=== PATIENT | female | born 1950 | race Caucasian/White ===

== ENCOUNTER → 2017-03-26 | Outpatient (CLI) | payer MEDICARE, SELFPAY | PROVIDERS: Family Provider Family Medicine; Visit Provider Orthopaedic Surgery | DX: M25.552 Pain in left hip (principal) | CPT/HCPCS: 73502 ==

== ENCOUNTER 2017-06-16 15:00 | Outpatient (RCR) | payer MEDICARE, SELFPAY ==
--- NOTE | 2017-04-30 09:28 | HMH.PTOPEV ---
Rehab Outpatient Evaluation Rehab OP Evaluation Start: 04/30/17 09:13 Freq: Status: Active Protocol: Document 04/30/17 09:14 YANNAREID (Rec: 04/30/17 09:27 LINDSEY [id number]) Electronically Signed By David Medel PT 04/30/17 09:14 Outpatient Therapy Subjective History Subjective History THis is the initial Physical Therapy evalaution for Junie Hines. PT is a 66 y/o female referred to PT for c/o R heel pain. Pt reports pain began insidiously in February but has increased over the last few months. Pt reports last thursday she went to [employer] [facility] [employer]. Chief Complaint Pain Stiff Symptom Type Sharp Symptoms Relieved By Rest/Positioning Symptoms Aggravated By Standing Physical Activity Walking Prior Functional Limitations None Current Functional Limitations Standing Recreation Activity Walking Symptom Description Intermittent Level of pain today (0-10) 2 Pain scale - at its best (0-10) 5 Pain scale - at its worst (0-10) 0 Ankle/Foot Eval Gait Observation General Gait Pattern Observation Antalgic Gait Assistive Device Ambulation Assistive Device None Palpation Tenderness right Ankle/Foot Palpation Findings Tenderness Ankle/Foot Palpation Overall Comment tender at R heel ROM bilateral Ankle/Foot ROM Reason Not Measured Within Functional Limits Great Toe ROM Reason Not Measured Within Functional Limits MMT Ankle Dorsiflexion Strength Grade 5 Normal Ankle Plantarflexion Strength Grade 5 Normal Foot Eversion Strength Grade 5 Normal Foot Inversion Strength Grade 5 Normal Outpatient Therapy Assessment Impairments Problems/Impairmments Palpation Tenderness Impaired Gait Pattern Impaired Walking Impaired Standing Impaired Recreational Activities Impaired Work Activities Subjective C/O Pain Impaired Self Care/Self Management Prognosis Rehab Potential Fair Clinical Impression Consistent with Diagnosis Yes Short Term Goals Number of Weeks 2 Decreased Palpation Tende
== END 2017-06-16 15:01 | disposition home or self-care (01) ==
LOC: PT 15:00
PROVIDERS: Family Provider Family Medicine; PCP Family Medicine; Visit Provider Family Medicine
DX: M72.2 Plantar fascial fibromatosis (principal)
CPT/HCPCS: 97035; 97110; 97140

== ENCOUNTER → 2017-07-21 07:51 | Outpatient (CLI) | payer MEDICARE, SELFPAY ==
--- NOTE | 2017-07-21 08:00 | MR_ITS ---
MR lumbar spine wo con, MR 3-d myelogram/MRCP HISTORY: Left sided LBP. Lt leg pain, numbness, and tingling along with weakness. Symptoms Xyrs but started getting worse [id number]. ITS.REASON: LEFT LUMBAR RADICULOPATHY ORDERING PHYSICIAN: Jens Wall MD PATIENT AGE: 66 years TECHNIQUE: Standard multiplanar multiecho sequences are performed without contrast. 3-D MIP and myelographic images are also rendered and reviewed FINDINGS: There is normal alignment. The spinal cord ends at the L1-L2 level. Mild degenerative disc disease T11-T12 with minimal bulging disc best demonstrated on the sagittal images. T12-L1, L1-L2, and L2-L3 have an unremarkable appearance. L3-L4: Very minimal bulging disc along with mild facet and ligamentum flavum hypertrophy. L4-5: Minimal anterolisthesis of L4 of 2 mm with mild bulging disc along with facet and ligamentum flavum hypertrophy causing moderate bilateral lateral recess narrowing. This is greater on the right with resultant transverse narrowing of the canal along with mild bilateral foraminal narrowing. L5-S1: Mild concentric bulging disc with a small broad-based left paracentral disc protrusion abutting the anteromedial aspect of the left S1 nerve root without nerve root displacement or compression. Mild facet hypertrophic changes are present with mild to moderate bilateral foraminal narrowing. Right parapelvic renal cyst versus extrarenal pelvis. IMPRESSION: 1. Degenerative disc disease with mild bulging disc at T11-T12 and L3-L4. 2. Minimal anterolisthesis of L4 on L5 of 2 mm with mild bulging disc along with facet and ligamentum flavum hypertrophy causing moderate bilateral lateral recess narrowing. This is greater on the right with resultant transverse narrowing of the canal along with mild bilateral foraminal narrowing. 3. Mild concentric bulging disc L5-S1 with a small broad-based left paracentral disc protrusion abutting the anteromedial aspect of the left S1 nerve root without nerve root displacement or compression. Mild facet hypertrophic changes are present with mild to moderate bilateral foraminal narrowing
== END ==
PROVIDERS: Family Provider Family Medicine; PCP Family Medicine; Visit Provider Family Medicine
DX: M54.16 Radiculopathy, lumbar region (principal)
CPT/HCPCS: 72148; 76376

== ENCOUNTER → 2017-10-28 11:48 | Outpatient (CLI) | payer MEDICARE, SELFPAY ==
[2017-10-28 11:57] LABS: Microscopic, Urine URINE MICROSCOPIC (MICROSCOPIC)
[2017-10-28 12:04] LABS: Appearance,Urine CLEAR (Clear); Bilirubin,Urine Negative (Negative); Blood, Urine Negative (Negative); Color,Urine YELLOW (Yellow); Glucose,Urine (UA) Negative (Negative); Ketones,Urine Negative (Negative); Leukocyte Esterase,Urine Negative (Negative); Nitrate,Urine Negative (Negative); PH,Urine 6.5 (5.0-8.5); Protein,Urine Negative (Negative); Specific Gravity, Urine <= 1.005 (1.005-1.030); Urobilinogen,Urine 0.2 EU/dl (0.2)
[2017-10-28 12:09] LABS: Basophils % 0.3 % (0.1-2.0); Eosinophils # 0.1 K/mm3 (0.0-0.4); Eosinophils % 1.1 % (0.1-12.0); Hematocrit 41.8 % (37.0-47.0); Hemoglobin 13.5 g/dL (12.2-16.2); Lymphocytes # 1.5 K/mm3 (0.7-4.5); Mean Corpuscular HGB Conc 32.3 g/dL (31.8-35.4); Mean Corpuscular Volume 92.8 fl (81-99); Mean Platelet Volume 7.1 fl (7.4-10.4); Monocytes # 0.4 K/mm3 (0.1-1.0); Monocytes % 6.6 % (1.7-9.3); Neutrophils # 3.7 K/mm3 (1.8-7.8); Platelet Count 390 K/mm3 (142-424); Red Cell Distribution Width 16.1 % (11.5-17.5); White Blood Count 5.6 K/mm3 (4.8-10.8)
--- NOTE | 2017-10-28 12:16 | XR_ITS ---
XR chest 2V HISTORY: ITS.REASON: ENVIROMENTAL ALLERGIES ORDERING PHYSICIAN: Jens Wall MD PATIENT AGE: 66 years COMPARISON: PA and lateral chest 05/12/2011 FINDINGS: The cardiomediastinal silhouette and pulmonary vascularity are within normal limits. The lungs are clear without infiltrates, suspicious nodules, or pleural effusions. No acute bony abnormalities. IMPRESSION: Negative chest, no acute finding
[2017-10-28 12:17] LABS: Activated Partial Thrombo Time 29.4 seconds (23.6-34.0); INR 0.97 (0.9-1.1)
[2017-10-28 12:19] LABS: Bacteria,Urine Trace /lpf
[2017-10-28 12:31] LABS: Hemoglobin A1C 5.7 % (0.0-7.0)
[2017-10-28 12:39] LABS: Anion Gap 12.6 mEq/L (5-15); Blood Urea Nitrogen 14 mg/dL (7-18); Calcium 9.6 mg/dL (8.5-10.1); Carbon Dioxide 28 mmol/L (21.0-32.0); Chloride 100 mmol/L (98-107); Creatinine,Serum 0.66 mg/dL (0.55-1.02); Estimated Glomerular Filt Rate 89 ml/min (>60); GFR (African American) 108 ML/MIN (>60); Glucose 85 mg/dL (74-106); Potassium 4.6 mmoL/L (3.5-5.1); Sodium 136 mmol/L (136-145)
== END ==
PROVIDERS: Visit Provider Family Medicine
DX: Z01.818 Encounter for other preprocedural examination (principal); Z79.899 Other long term (current) drug therapy; M25.552 Pain in left hip
CPT/HCPCS: 36415; 71046; 80048; 81001; 83036; 85025; 85610; 85730; 93005

== ENCOUNTER 2018-01-15 08:00 | Outpatient (RCR) | payer MEDICARE, SELFPAY | END 2018-01-15 08:01 | disposition home or self-care (01) | LOC: PT 08:00 | PROVIDERS: Visit Provider Physician Assistant | DX: M25.552 Pain in left hip (principal) | CPT/HCPCS: 97010; 97012; 97014; 97035; 97110; 97140; 97163; 97760; G0283 ==

== ENCOUNTER → 2018-05-04 08:00 | Outpatient (RCR) | payer MEDICARE, SELFPAY | END | disposition home or self-care (01) | LOC: PT 03-22 07:59 | PROVIDERS: Visit Provider Orthopaedic Surgery | DX: Z09 Encounter for follow-up examination after completed treatment for conditions other than malignant neoplasm (principal); Z96.641 Presence of right artificial hip joint | CPT/HCPCS: 97110; 97163 ==

== ENCOUNTER → 2018-07-01 08:11 | Outpatient (CLI) | payer MEDICARE, SELFPAY ==
[2018-07-01 09:09] LABS: Hemoglobin A1C 6.1 % (0.0-7.0)
[2018-07-01 09:20] LABS: Alanine Aminotransferase 30 U/L (12-78); Albumin Level 3.9 gm/dL (3.4-5.0); Albumin/Globulin Ratio 1.1 (1.1-1.8); Alkaline Phosphatase 99 U/L (46-116); Anion Gap 13.1 mEq/L (5-15); Aspartate Amino Transferase 27 U/L (15-37); Bilirubin,Total 0.3 mg/dL (0.2-1.0); Blood Urea Nitrogen 18 mg/dL (7-18); Calcium 9.9 mg/dL (8.5-10.1); Carbon Dioxide 28 mmol/L (21.0-32.0); Chloride 103 mmol/L (98-107); Chol/HDL Ratio 2.1 (1-3.5); Cholesterol 221 mg/dL (140-200); Creatinine,Serum 0.68 mg/dL (0.55-1.02); Estimated Glomerular Filt Rate 86 ml/min (>60); GFR (African American) 104 ML/MIN (>60); Globulin 3.4 gm/dl (1.3-3.2); Glucose 88 mg/dL (74-106); HDL Cholesterol 106 mg/dL (29-89); LDL Cholesterol 107 mg/dL (0-130); Potassium 4.1 mmoL/L (3.5-5.1); Sodium 140 mmol/L (136-145); Total Protein,Serum 7.3 gm/dL (6.4-8.2); Triglycerides 42 mg/dL (30-200); VLDL Cholesterol 8 mg/dL (0-40)
== END ==
PROVIDERS: Visit Provider Family Medicine
DX: Z00.00 Encounter for general adult medical examination without abnormal findings (principal); Z79.899 Other long term (current) drug therapy
CPT/HCPCS: 36415; 80053; 80061; 83036

== ENCOUNTER → 2018-10-26 09:44 | Outpatient (POV) | payer MEDICARE, SELFPAY | PROVIDERS: Visit Provider Dermatology | DX: Z00.00 Encounter for general adult medical examination without abnormal findings (principal) ==

== ENCOUNTER 2019-03-18 11:00 | Outpatient (RCR) | payer MEDICARE, SELFPAY | END 2019-03-18 11:05 | disposition home or self-care (01) | LOC: PT 11:00 | PROVIDERS: Visit Provider Physician Assistant | DX: M70.61 Trochanteric bursitis, right hip (principal) | CPT/HCPCS: 97010; 97014; 97033; 97035; 97110; 97163; 97164; G0283 ==

== ENCOUNTER → 2019-10-01 08:45 | Outpatient (CLI) | payer MEDICARE, SELFPAY ==
[2019-10-01 11:06] LABS: Chloride 104 mmol/L (98-107); Potassium 4.9 mmoL/L (3.5-5.1); Sodium 137 mmol/L (136-145)
[2019-10-01 11:08] LABS: Blood Urea Nitrogen 15 mg/dl (7-17); Estimated Glomerular Filt Rate 99 ml/min (>60); GFR (African American) 120 ML/MIN (>60)
[2019-10-01 11:09] LABS: Alanine Aminotransferase 30 U/L (12-78); Albumin Level 4.2 g/dl (3.5-5.0); Albumin/Globulin Ratio 1.5 (1.1-1.8); Alkaline Phosphatase 72 U/L (38-126); Anion Gap 9.9 mEq/L (5-15); Aspartate Amino Transferase 45 U/L (14-36); Bilirubin,Total 0.4 mg/dl (0.2-1.3); Calcium 9.5 mg/dl (8.4-10.2); Carbon Dioxide 28 mmol/L (22.0-30.0); Globulin 2.8 g/dL (1.3-3.2); Glucose 91 mg/dl (74-100); HDL Cholesterol 103 mg/dl (40-60)
[2019-10-01 11:11] LABS: Hemoglobin A1C 5.8 % (4.0-6.0)
[2019-10-01 11:22] LABS: Direct LDL Cholesterol 102.84 mg/dL (100-129)
[2019-10-01 14:51] LABS: Chol/HDL Ratio 2.3 (1-3.5); Cholesterol 234 mg/dl (140-200); Triglycerides 77 mg/dl (30-150); VLDL Cholesterol 15 mg/dL (0-40)
== END ==
PROVIDERS: Visit Provider Family Medicine
DX: Z00.00 Encounter for general adult medical examination without abnormal findings (principal); K22.70 Barrett's esophagus without dysplasia; G47.33 Obstructive sleep apnea (adult) (pediatric); R73.01 Impaired fasting glucose; E78.5 Hyperlipidemia, unspecified; Z13.220 Encounter for screening for lipoid disorders
CPT/HCPCS: 36415; 80053; 80061; 83036

== ENCOUNTER → 2020-06-09 09:26 | Outpatient (CLI) | payer MEDICARE, SELFPAY ==
[2020-06-09 10:45] LABS: Chloride 100 mmol/L (98-107); Potassium 4.3 mmoL/L (3.5-5.1); Sodium 139 mmol/L (136-145)
[2020-06-09 10:48] LABS: Anion Gap 11.3 mEq/L (5-15); Blood Urea Nitrogen 17 mg/dl (7-17); Carbon Dioxide 32 mmol/L (22.0-30.0); Estimated Glomerular Filt Rate 62 ml/min (>60); GFR (African American) 75 ML/MIN (>60)
[2020-06-09 10:49] LABS: Calcium 10.4 mg/dl (8.4-10.2); Glucose 101 mg/dl (74-100)
== END ==
PROVIDERS: Visit Provider Family Medicine
DX: I10 Essential (primary) hypertension (principal)
CPT/HCPCS: 36415; 80048

== ENCOUNTER → 2020-09-19 08:08 | Outpatient (CLI) | payer MEDICARE, SELFPAY ==
[2020-09-19 11:15] LABS: Alanine Aminotransferase 29 U/L (12-78); Albumin Level 4.6 g/dl (3.5-5.0); Albumin/Globulin Ratio 1.6 (1.1-1.8); Alkaline Phosphatase 87 U/L (38-126); Anion Gap 12.4 mEq/L (5-15); Aspartate Amino Transferase 33 U/L (14-36); Bilirubin,Total 0.6 mg/dl (0.2-1.3); Blood Urea Nitrogen 20 mg/dl (7-17); Calcium 10.2 mg/dl (8.4-10.2); Carbon Dioxide 25 mmol/L (22.0-30.0); Chloride 101 mmol/L (98-107); Chol/HDL Ratio 2.9 (1-3.5); Cholesterol 237 mg/dl (140-200); Estimated Glomerular Filt Rate 62 ml/min (>60); GFR (African American) 75 ML/MIN (>60); Globulin 2.8 g/dL (1.3-3.2); Glucose 90 mg/dl (74-100); HDL Cholesterol 82 mg/dl (40-60); Potassium 4.4 mmoL/L (3.5-5.1); Sodium 134 mmol/L (136-145); Total Protein,Serum 7.4 g/dl (6.3-8.2); Triglycerides 69 mg/dl (30-150); VLDL Cholesterol 14 mg/dL (0-40)
[2020-09-19 11:26] LABS: Direct LDL Cholesterol 118.84 mg/dL (100-129)
== END ==
PROVIDERS: Visit Provider Family Medicine
DX: Z00.00 Encounter for general adult medical examination without abnormal findings (principal); I10 Essential (primary) hypertension; K21.9 Gastro-esophageal reflux disease without esophagitis
CPT/HCPCS: 36415; 80053; 80061

== ENCOUNTER → 2020-09-24 08:34 | Outpatient (CLI) | payer MEDICARE, SELFPAY ==
--- NOTE | 2020-09-24 08:37 | XR_ITS ---
PROCEDURE: XR DEXA AXIAL SKELETON CLINICAL HISTORY: POST-MENOPAUSAL COMPARISON: No exams were available for comparison FINDINGS: The right hip BMD is 0.631 with a T-score of -2.0. The left forearm BMD is 0.438 with a T-score of -4.3. The lumbar spine BMD is 0.873 with a T-score of -1.6. IMPRESSION: This patient is considered osteoporotic according to the World Health Organization criteria. Fracture risk is high. Treatment is advised. Based on these results a follow-up exam is recommended in 1 year. Dictated by: Anders Sandoval MD 09/25/2020 08:09 Anders Sandoval MD in [place] 09/25/2020 08:09
== END ==
PROVIDERS: PCP Family Medicine; Visit Provider Family Medicine
DX: Z78.0 Asymptomatic menopausal state (principal)
CPT/HCPCS: 77080

== ENCOUNTER 2020-10-19 09:50 | Outpatient (CLI) | payer MEDICARE, SELFPAY ==
[2020-10-19 10:10] VITALS: BP 132/80; PULSE 80; RESP 18; O2SAT 98
== END 2020-10-19 10:25 | disposition home or self-care (01) ==
LOC: INF 09:53
PROVIDERS: Visit Provider Family Medicine
DX: M81.0 Age-related osteoporosis without current pathological fracture (principal)
CPT/HCPCS: 96372; J0897

== ENCOUNTER → 2021-03-18 08:55 | Outpatient (CLI) | payer MEDICARE, SELFPAY | PROVIDERS: PCP Family Medicine; Visit Provider Nurse Practitioner | DX: Z20.822 Contact with and (suspected) exposure to COVID-19 (principal) | CPT/HCPCS: C9803; U0003; U0005 ==

== ENCOUNTER → 2021-04-08 16:02 | Outpatient (CLI) | payer MEDICARE, SELFPAY | PROVIDERS: PCP Family Medicine; Visit Provider Nurse Practitioner | DX: Z20.822 Contact with and (suspected) exposure to COVID-19 (principal) | CPT/HCPCS: C9803; U0003; U0005 ==

== ENCOUNTER 2021-04-22 10:20 | Outpatient (CLI) | payer MEDICARE, SELFPAY ==
[2021-04-22 10:43] VITALS: BP 123/67; PULSE 88; RESP 16; TEMP 36.4; O2SAT 100
[2021-04-22 10:44] VITALS: BP 123/67; PULSE 88; RESP 16; TEMP 36.2; O2SAT 100
== END 2021-04-22 10:50 | disposition home or self-care (01) ==
LOC: INF 10:22
PROVIDERS: PCP Family Medicine; Visit Provider Family Medicine
DX: M81.0 Age-related osteoporosis without current pathological fracture (principal)
CPT/HCPCS: 96372; J0897

== ENCOUNTER → 2021-04-29 08:37 | Outpatient (CLI) | payer MEDICARE, SELFPAY | PROVIDERS: Visit Provider Nurse Practitioner | DX: Z20.822 Contact with and (suspected) exposure to COVID-19 (principal) | CPT/HCPCS: C9803; U0003; U0005 ==

== ENCOUNTER → 2021-09-06 08:37 | Outpatient (CLI) | payer MEDICARE, SELFPAY ==
--- NOTE | 2021-09-06 08:55 | XR_ITS ---
FINAL REPORT TECHNIQUE: Bone mineral density was calculated of the lumbar spine, left forearm and left hip. CLINICAL HISTORY: . osteoporosis COMPARISON: September 24, 2020 FINDINGS: DEXA BONE DENSITY AXIAL SKELETON Using L1-4, the bone mineral density of the spine is 0.874 g/cm2, corresponding to T-score of -1.6. This is stable from the prior. Using the right hip, the bone mineral density of the femoral neck is 0.618 g/cm2, corresponding to a T-score of -2.1. This is stable from the prior. Is in the left forearm, the bone mineral density of the distal 1/3 is 0.586 g/cm2, corresponding to a T-score of -1.8. This is significantly improved since the prior but the prior was likely erroneously low. NOTE: T-score: Standard deviation compared with peak bone mass of young adult mean. *Following the recommendations of the International Society of Bone densitometry, classification of hip BMD is based on the lower of two T-scores; total hip or femoral neck. IMPRESSION: Diminished bone mineral density of the lumbar spine right hip and left forearm consistent with osteopenia. Reviewed, Interpreted and Dictated by Ton Childs III, MD Transcribed by Conchita Atwood Authenticated and [facility]
[2021-09-06 09:53] LABS: Alanine Aminotransferase 30 U/L (12-78); Albumin Level 4.1 g/dl (3.5-5.0); Albumin/Globulin Ratio 1.6 (1.1-1.8); Alkaline Phosphatase 81 U/L (38-126); Anion Gap 11.3 mEq/L (5-15); Aspartate Amino Transferase 38 U/L (14-36); Bilirubin,Total 0.2 mg/dl (0.2-1.3); Blood Urea Nitrogen 17 mg/dl (7-17); Calcium 9.7 mg/dl (8.4-10.2); Carbon Dioxide 29 mmol/L (22.0-30.0); Chloride 98 mmol/L (98-107); Chol/HDL Ratio 2.8 (1-3.5); Cholesterol 225 mg/dl (140-200); Estimated Glomerular Filt Rate 82 ml/min (>60); GFR (African American) 100 ML/MIN (>60); Globulin 2.6 g/dL (1.3-3.2); Glucose 99 mg/dl (74-100); HDL Cholesterol 81 mg/dl (40-60); Potassium 4.3 mmoL/L (3.5-5.1); Sodium 134 mmol/L (136-145); Total Protein,Serum 6.7 g/dl (6.3-8.2); Triglycerides 96 mg/dl (30-150); VLDL Cholesterol 19 mg/dL (0-40)
[2021-09-06 10:04] LABS: Direct LDL Cholesterol 96.21 mg/dL (100-129)
== END ==
PROVIDERS: PCP Family Medicine; Visit Provider Family Medicine
DX: Z00.00 Encounter for general adult medical examination without abnormal findings (principal); I10 Essential (primary) hypertension; Z78.0 Asymptomatic menopausal state
CPT/HCPCS: 36415; 77080; 80053; 80061

== ENCOUNTER 2021-09-17 09:00 | Outpatient (RCR) | payer MEDICARE, SELFPAY | END 2021-09-17 09:05 | disposition home or self-care (01) | LOC: PT 09:00 | PROVIDERS: PCP Family Medicine; Visit Provider Physician Assistant | DX: M70.61 Trochanteric bursitis, right hip (principal) | CPT/HCPCS: 97010; 97014; 97035; 97110; 97112; 97163; 97164; G0283 ==

== ENCOUNTER 2021-10-21 09:18 | Outpatient (CLI) | payer MEDICARE, SELFPAY ==
[2021-10-21 09:37] VITALS: BP 108/62; PULSE 78; RESP 18; TEMP 37; O2SAT 98
== END 2021-10-21 10:00 | disposition home or self-care (01) ==
LOC: INF 09:19
PROVIDERS: PCP Family Medicine; Visit Provider Family Medicine
DX: M81.0 Age-related osteoporosis without current pathological fracture (principal)
CPT/HCPCS: 96372; J0897

== ENCOUNTER 2022-04-28 09:18 | Outpatient (CLI) | payer MEDICARE, SELFPAY ==
[2022-04-28 09:38] VITALS: BP 112/69; PULSE 86; RESP 16; TEMP 36.4; O2SAT 99
== END 2022-04-28 09:50 | disposition home or self-care (01) ==
PROVIDERS: PCP Family Medicine; Visit Provider Family Medicine
DX: M85.89 Other specified disorders of bone density and structure, multiple sites (principal)
CPT/HCPCS: 96372; J0897

== ENCOUNTER → 2022-05-01 08:17 | Outpatient (CLI) | payer MEDICARE, SELFPAY ==
--- NOTE | 2022-05-01 08:20 | US_ITS ---
FINAL REPORT TECHNIQUE: Multiple transverse and longitudinal images CLINICAL HISTORY: RUQ ABD PAIN FINDINGS: The gallbladder shows no wall thickening, distention or stone disease. No biliary ductal dilatation is appreciated. No fluid collections are seen. There is fatty infiltration of the liver. There is a benign, 12 mm upper pole right renal cyst. IMPRESSION: 1. No evidence of cholelithiasis 2. No evidence of biliary obstruction 3. Fatty liver. 4. Right renal cyst. Reviewed, Interpreted and Dictated by Felisha Guadalupe MD Transcribed by Kirsty Rosas Authenticated and . [facility]
== END ==
PROVIDERS: PCP Family Medicine; Visit Provider Physician Assistant
DX: R10.11 Right upper quadrant pain (principal)
CPT/HCPCS: 76705

== ENCOUNTER 2022-07-01 09:00 | Outpatient (RCR) | payer MEDICARE, SELFPAY | END 2022-07-01 09:05 | disposition home or self-care (01) | LOC: PT 09:00 | PROVIDERS: PCP Family Medicine; Visit Provider Physician Assistant | DX: M25.551 Pain in right hip (principal); S76.311A Strain of muscle, fascia and tendon of the posterior muscle group at thigh level, right thigh, initial encounter | CPT/HCPCS: 20560; 20561; 97010; 97014; 97110; 97140; 97163; 97164; 97530; G0283 ==

== ENCOUNTER → 2022-07-30 08:41 | Outpatient (CLI) | payer MEDICARE, SELFPAY ==
[2022-08-04 17:55] LABS: Pancreatic Elastase, Fecal 228 (>200)
== END ==
PROVIDERS: PCP Family Medicine; Visit Provider Nurse Practitioner Family
DX: K22.70 Barrett's esophagus without dysplasia (principal); K30 Functional dyspepsia; R19.4 Change in bowel habit; R14.0 Abdominal distension (gaseous); R19.7 Diarrhea, unspecified
CPT/HCPCS: 82656

== ENCOUNTER → 2022-08-06 11:32 | Outpatient (CLI) | payer MEDICARE, SELFPAY ==
[2022-08-06 12:05] LABS: Blood Urea Nitrogen 16 mg/dl (7-17); Estimated Glomerular Filt Rate 71 ml/min (>60); GFR (African American) 85 ML/MIN (>60)
== END ==
PROVIDERS: PCP Family Medicine; Visit Provider Physician Assistant
DX: Z01.812 Encounter for preprocedural laboratory examination (principal)
CPT/HCPCS: 36415; 82565; 84520

== ENCOUNTER → 2022-08-07 10:35 | Outpatient (CLI) | payer MEDICARE, SELFPAY ==
--- NOTE | 2022-08-07 10:41 | MR_ITS ---
FINAL REPORT CLINICAL HISTORY: DIZZINESS unable to walk straight lines 13 ml prohance FINDINGS: Multiplanar MR imaging of the brain was performed without and with contrast. There are few tiny scattered foci of increased signal in the deep white matter which are nonspecific. There is no evidence of intracranial hemorrhage or mass. No abnormal extra-axial fluid collection is seen. The ventricular size is within normal limits. There is no evidence of shift of the midline structures. The posterior fossa and brainstem have an unremarkable appearance. No area of abnormal restricted diffusion is identified. No abnormal contrast enhancement is seen. Normal major vessel vascular flow voids are noted. There is a small amount of mucoperiosteal thickening in the posterior left maxillary sinus consistent with chronic sinusitis. IMPRESSION: Minimal scattered foci in a deep white matter, may be related to chronic ischemic changes. Chronic left maxillary sinusitis. Reviewed, Interpreted and Dictated by Rashid Romero MD Transcribed by Kirsty Rosas Authenticated and [facility]
== END ==
PROVIDERS: PCP Family Medicine; Visit Provider Physician Assistant
DX: R42 Dizziness and giddiness (principal)
CPT/HCPCS: 70553; A9576

== ENCOUNTER → 2022-08-26 14:17 | Outpatient (CLI) | payer MEDICARE, SELFPAY ==
--- NOTE | 2022-08-26 14:25 | CA_ITS ---
FINAL REPORT TECHNIQUE: Color Doppler, duplex Doppler and barrera scale sonography of the bilateral neck arterial vasculature was performed. Velocities were measured in the carotid arteries. Stenosis evaluation based on the validated velocity criteria. CLINICAL HISTORY: Dizziness, imbalance with extension of the head FINDINGS: The peak systolic velocity of the right common carotid artery is 76 cm/s. The peak systolic velocity of the right internal carotid artery is 74 cm/s and end diastolic velocity 31 cm/s. The ICA/CCA ratio is 1.0. A small amount of plaque is present. The right external carotid artery is patent. The right vertebral artery is patent with antegrade flow. The peak systolic velocity of the left common carotid artery is 76 cm/s. The peak systolic velocity of the left internal carotid artery is 73 cm/s and end diastolic velocity 29 cm/s. The ICA/CCA ratio is 1.0. A small amount of plaque is present. The left external carotid artery is patent.The left vertebral artery is patent with antegrade flow. IMPRESSION: Less than 50% bilateral carotid stenoses. Bilateral patent vertebral arteries with antegrade flow. If indicated, CTA or MRA could further evaluate. Reviewed, Interpreted and Dictated by Ton Childs III, MD Transcribed by Kirsty Rosas Authenticated and [facility]
== END ==
PROVIDERS: PCP Family Medicine; Visit Provider Specialist
DX: R42 Dizziness and giddiness (principal)
CPT/HCPCS: 93880

== ENCOUNTER 2022-10-03 10:30 | Outpatient (RCR) | payer MEDICARE, SELFPAY ==
--- NOTE | 2022-09-15 15:36 | HMH.PTOPEV ---
PT Outpatient Evaluation Rehab PT Outpatient Evaluation Start: 09/15/22 14:03 Freq: Status: Active Protocol: Document 09/15/22 15:11 PHORNE (Rec: 09/15/22 15:36 PHORNE [id number]) E-signed By Hardik Stauffer, PT Outpatient Therapy Subjective History Subjective History This is the initial PT eval for Junie Hines, 71 yowf who presents with c/o unsteadiness during gait x ~ 6 mos with insidious onset of symptoms. She reports, When I walk, I kind of list to one side or the other and I feel like I'm going to stumble sometimes. 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 She has problems with her L foot after a prior bunionectomy resulted in altered positioning of her great toe. She also has hx of L JEANNE. She had MRI of the brain performed which showed minimal ischemic changes only. Chief Complaint Other Symptoms Relieved By Rest/Positioning Symptoms Aggravated By Walking Prior Functional Limitations None Current Functional Limitations Standing,Walking Symptom Description Activity Dependent Level of pain today (0-10) 0 Balance Eval Hx of Falls Hx Falls No Gait/Posture Asssessment General Gait Observation Wide Based Gait Ankle/Foot Observation in Gait Stance Decreased Heel Strike, Decreased Push Off Body Alignment Posture Rigid Nystagmus Nystagmus Presence None Oculomotor Gaze Oculomotor Gaze Nml: Vergence Smooth Pursuit Saccades VOR Cancellation Cover/Uncover Cross Cover Dynamic Gait Index Test Protocol Gait Level Surface Normal Query Text: Instructions: Walk at your normal speed from here to the next alondra (20'). Grading: Alondra the lowest category that applies. Change in Gait Speed Mild Impairment Query Text: Instructions: Begin walking at your normal pace (for 5'), when I tell you go , walk as fast as you can (for 5'). When I tell you slow , walk as slowly as you can (for
== END 2022-10-03 10:35 | disposition home or self-care (01) ==
LOC: PT 10:30
PROVIDERS: Visit Provider Specialist
DX: R42 Dizziness and giddiness (principal)
CPT/HCPCS: 97110; 97112; 97163; 97530

== ENCOUNTER → 2022-10-09 10:44 | Outpatient (POV) | payer MEDICARE, SELFPAY | PROVIDERS: Visit Provider Specialist/Technologist | DX: Z00.00 Encounter for general adult medical examination without abnormal findings (principal) ==

== ENCOUNTER 2023-09-23 15:04 | Outpatient (CLI) | payer MEDICARE, SELFPAY ==
--- NOTE | 2023-09-23 15:15 | XR_ITS ---
FINAL REPORT TECHNIQUE: Bone densitometry calculations of the lumbar spine and left hip were obtained. CLINICAL HISTORY: POST MENOPAUSAL COMPARISON: 09/06/2021 FINDINGS: Using right forearm, the bone mineral density of the proximal third is 0.585 g/cm2, corresponding to T-score of -1.8. Using the right hip, the bone mineral density of the femoral neck is 0.620 g/cm2, corresponding to a T-score of -2.1. NOTE: T-score: Standard deviation compared with peak bone mass of young adult mean. *Following the recommendations of the International Society of Bone densitometry, classification of hip BMD is based on the lower of two T-scores; total hip or femoral neck. IMPRESSION: Diminished bone mineral density of the right forearm and right hip consistent with osteopenia. Reviewed, Interpreted and Dictated by Felisha Guadalupe MD Transcribed by Silva Lopez Authenticated and [facility]
== END 2023-09-23 23:59 | disposition home or self-care (01) ==
LOC: RAD 15:06
PROVIDERS: PCP Family Medicine; Visit Provider Physician Assistant
DX: Z13.820 Encounter for screening for osteoporosis (principal); M85.89 Other specified disorders of bone density and structure, multiple sites
CPT/HCPCS: 77080

== ENCOUNTER 2024-05-21 07:58 | Emergency (ER) | payer MEDICARE, SELFPAY ==
[2024-05-21] VITALS (11 sets, daily range): BP systolic 106–147; BP diastolic 68–81; PULSE 59–74; RESP 13–17; TEMP 36.6; O2SAT 95–100; BMI 22.3
--- NOTE | 2024-05-21 07:58 | ECG_ITS ---
APPROVED REPORT Exam: Resting ECG HR:69 bpm ECG Measurements Heart Rate 69 AXES IA 155 P 66 QRSd 88 QRS 68 QT 366 T 50 QTc 385 Conclusion SINUS RHYTHM NONSPECIFIC T-WAVE ABNORMALITY BORDERLINE ECG UNCONFIRMED REPORT Electronically signed by : Damir Hayward, 05/21/2024 15:00:26
--- NOTE | 2024-05-21 08:08 | CT_ITS ---
PROCEDURE INFORMATION: Exam: CTA Chest With Contrast Exam date and time: 05/21/2024 8:46 AM Age: 73 years old Clinical indication: Pain; Other: Pleuritic; Additional info: Pleuritic chest pain since this morning TECHNIQUE: Imaging protocol: Computed tomographic angiography of the chest with contrast. Exam focused on the arteries. 3D rendering (Not supervised by radiologist): MIP and/or 3D reconstructed images were created by the technologist. Radiation optimization: All CT scans at this facility use at least one of these dose optimization techniques: automated exposure control; mA and/or kV adjustment per patient size (includes targeted exams where dose is matched to clinical indication); or iterative reconstruction. Contrast material: ISOVUE 370; Contrast volume: 70 ml; Contrast route: INTRAVENOUS (IV); COMPARISON: CR CXR2V XR chest 2V 10/28/2017 12:18 PM FINDINGS: Pulmonary arteries: No evidence of filling defects to suggest pulmonary emboli. Aorta: Aorta is nonaneurysmal. Trachea: Main airways are patent. Lungs: No evidence of consolidation or interlobular septal thickening. No evidence of consolidation or interlobular septal thickening. There is a 3 mm right lower lobe pulmonary nodule (series 7, image 64). Pleural spaces: Unremarkable. No pneumothorax. No pleural effusion. Heart: Unremarkable. No cardiomegaly. No pericardial effusion. Heart RV/LV ratio: The RV/LV ratio is less than 1. Coronary arteries: There is moderate atherosclerotic calcification of the coronary arteries. Lymph nodes: Unremarkable. No enlarged lymph nodes. Bones/joints: Unremarkable. No acute fracture. Soft tissues: Unremarkable. IMPRESSION: 1. No evidence of filling defects to suggest pulmonary emboli. 2. There is moderate atherosclerotic calcification of the coronary arteries. 3. There is a 3 mm right lower lobe pulmonary nodule (series 7, image 64). For patients at low risk (minimal or absent history of smoking and of other known risk factors), no routine follow-up is indicated. For patients at high risk (history of smoking or of other known risk factors), consider optional CT Chest at 12 months. (Reference: Barry) REFERENCES: Barry Raymundo et al. Guidelines for Management of Incidental Pulmonary Nodules Detected on CT Images: From the Fleischner Society 2017. Radiology. 2017;284(1):228-243.
--- NOTE | 2024-05-21 08:14 | ED_ITS ---
Discharge Plan Disposition Patient Disposition: Home, Self-Care Prescriptions Prescriptions: No Action All Day Allergy (cetirizine) 10 mg capsule 10 mg PO DAILY PRN (Reason: allergies) Prolia 60 mg/mL syringe 60 mg SQ [id number] cyanocobalamin (vitamin B-12) 1,000 mcg capsule 1,000 mcg PO DAILY Adult 50 Plus Probiotic 4 billion cell capsule 4,000 mmu cells PO DAILY Rx Instructions: administer with a meal omeprazole 20 MG capsule,delayed release(DR/EC) 20 mg PO DAILY estradiol 10 mcg tablet 10 mcg vaginal DIRECTED montelukast 10 mg tablet 10 mg PO PM vitamin E (dl, acetate) 400 UNIT capsule 400 unit PO DAILY fluticasone propionate 50 mcg/actuation spray,suspension 1 spray NS DAILY PRN (Reason: allergies) valacyclovir 1 gram tablet 2,000 mg PO Q12HP PRN (Reason: preventative) ascorbic acid (vitamin C) [Vitamin C] 1,000 mg Tablet 1 g PO DAILY cholecalciferol (vitamin D3) 1,000 UNIT capsule 2,000 unit PO DAILY calcium carbonate-vitamin D3 1 EACH tablet,chewable 1 each PO DAILY Activity Restrictions/Add. Instructions Additional Instructions/Restrictions: No evidence of an acute cardio or pulmonary emergency. Your symptoms are most likely secondary to idiopathic pleurisy which in the setting of viral season may be from subclinical virus. Nonetheless no evidence of pneumonia or blood clots acute coronary syndrome etc. Please take 600 mg of ibuprofen 3 times a day as needed for your discomfort. Return with any significant worsening or other concerns. Clinical Impressions Clinical Impression: Chest pain, pleuritic Print Language Print Language: Czech Discharge ED Provider: Gilbert Hayward HPI General Chief Complaint: Chest Pain Stated Complaint: cp Time Seen by Provider: 05/21/24 08:01 History of Present Illness HPI narrative: The patient is a very healthy 73-year-old female presenting today with left sided pleuritic chest pain. Started at around 5:30 AM this morning has been constant since that time. Worse with inspiration. No exertional symptoms dyspnea or diaphoresis associated with this also not radiating. No lower extremity swelling she does have a remote history nearly 30 years ago of a provoked DVT but is not on any anticoagulants at this point. No hemoptysis no recent prolonged immobilizations etc. Denies any recent febrile illness or viral infectious symptoms. Related Data Home Medications ?Medication ?Instructions ?Recorded ?Confirmed omeprazole 20 mg capsule,delayed 20 mg PO DAILY GERD 10/19/20 05/21/24 release calcium 600 mg (as carbonate)-vit 1 each PO DAILY Supplement 04/22/21 05/21/24 D3 20 mcg (800 unit) chewable tablet cholecalciferol (vitamin D3) 25 2,000 unit PO DAILY Supplement 04/22/21 05/21/24 mcg (1,000 unit) capsule vitamin E (dl, acetate) 180 mg 400 unit PO DAILY Supplement 10/21/21 05/21/24 (400 unit) capsule ascorbic acid (vitamin C) 1,000 mg 1 g PO DAILY Supplement 04/28/22 05/21/24 tablet (Vitamin C) cetirizine 10 mg capsule (All Day 10 mg PO DAILY PRN allergies 08/18/22 05/21/24 Allergy (cetirizine)) denosumab 60 mg/mL subcutaneous 60 mg SQ [id number] 08/18/22 05/21/24 syringe (Prolia) estradiol 10 mcg vaginal tablet 10 mcg vaginal DIRECTED HORMONE 08/18/22 05/21/24 REPLACEMENT fluticasone propionate 50 1 spray intranasal DAILY PRN 08/18/22 05/21/24 mcg/actuation nasal allergies spray,suspension montelukast 10 mg tablet 10 mg PO PM ALLERGIES 08/18/22 05/21/24 valacyclovir 1 gram tablet 2,000 mg PO Q12HP PRN preventative 08/18/22 05/21/24 cyanocobalamin (vitamin B-12) 1,000 mcg PO DAILY 01/28/23 05/21/24 1,000 mcg capsule lactobacillus combination no.9 4 4,000 mmu cells PO DAILY 01/28/23 05/21/24 billion cell capsule (Adult 50 Plus Probiotic) Allergies Allergy/AdvReac Type Severity Reaction Status Date / Time No Known Allergies Allergy Verified 05/21/24 08:08 [facility] Disclaimer: The information contained in this section may have been updated after the patient was seen, as this information can be updated by other users. Medical History Arthritis Dizziness Resolved since PCP discontinue triamterene/hydrochlorothiazide GERD (gastroesophageal reflux disease) High blood pressure Kidney stones PETE (obstructive sleep apnea) Osteoporosis Surgical History History of carpal tunnel surgery History of left hip replacement Family History Other COPD (chronic obstructive pulmonary disease) Social History Smoking Status: Former smoker alcohol intake: current alcohol intake frequency: a few times a week current occupational status: employed Travel in the last 8 weeks: None household members: spouse Have you lived/traveled outside US in past 30 days?: No Contact w/someone who lives/traveled outside US past 30 days?: No Exposure to someone with infectious disease in past 14 days?: No Do you have a fever (greater than 100.4 F or 38 C)?: No Have you tested positive for COVID-19: No Exposed to someone with COVID-19 in past 14 days?: No Do you have a sore throat?: No Do you have a cough?: No Do you have any weakness?: No Do you have any diarrhea?: No Are you experiencing any unusual bleeding?: No Do you have any muscle aches/pain?: No Do you have any abdominal pain?: No Are you experiencing loss of taste or smell?: No Other Medical History Have you received the Pneumonia Vaccine: Yes ROS Obtained: Yes All systems reviewed & no additional complaints except as documented Physical Exam General General appearance: alert Respiratory Respiratory exam: Present normal lung sounds bilaterally; Absent respiratory distress Cardiovascular Cardiovascular exam: Present regular rate and normal rhythm Neurological Exam Neurological exam: Present alert and oriented X3 HEART Score HEART Score HEART Score assessment performed?: Yes History (anamnesis): Slightly suspicious ECG: Normal Age: >65 years Risk factors: No known risk factors Troponin: </= normal limit HEART Score: 2 Critical Care Critical Care Time Critical Care Time: No Medical Decision Making Jose J Inquiry Pt receiving controlled substance: No Vital Signs Vital Signs: 05/21/24 08:01 05/21/24 08:08 05/21/24 08:30 Temperature 97.9 F Temperature Source Oral Pulse Rate 72 65 Pulse Rate [Left Radial] 70 Respiratory Rate 17 13 14 Blood Pressure 147/81 H 127/71 Blood Pressure [Right Arm] 147/81 H Blood Pressure Mean [Right Arm] 103 02 Sat by Pulse Oximetry 99 100 99 Oxygen Delivery Method Room Air Room Air Room Air 05/21/24 09:00 05/21/24 09:30 05/21/24 10:00 Temperature Temperature Source Pulse Rate 62 71 73 Pulse Rate [Left Radial] Respiratory Rate 13 14 17 Blood Pressure 140/70 132/68 131/74 Blood Pressure [Right Arm] Blood Pressure Mean [Right Arm] 02 Sat by Pulse Oximetry 99 98 95 Oxygen Delivery Method Room Air Room Air Room Air 05/21/24 10:30 05/21/24 11:00 05/21/24 11:30 Temperature Temperature Source Pulse Rate 64 59 L 69 Pulse Rate [Left Radial] Respiratory Rate 14 13 16 Blood Pressure 126/70 127/69 124/76 Blood Pressure [Right Arm] Blood Pressure Mean [Right Arm] 02 Sat by Pulse Oximetry 97 98 98 Oxygen Delivery Method Room Air Room Air Room Air 05/21/24 12:00 Temperature Temperature Source Pulse Rate 70 Pulse Rate [Left Radial] Respiratory Rate 15 Blood Pressure 106/75 L Blood Pressure [Right Arm] Blood Pressure Mean [Right Arm] 02 Sat by Pulse Oximetry 99 Oxygen Delivery Method Room Air Lab Data Lab results reviewed: Yes I reviewed the patient's lab results. Labs: Lab Results 05/21/24 08:01: WBC 6.1, RBC 4.05 L, Hgb 12.1 L, Hct 37.1, MCV 91.6, MCH 29.9, MCHC 32.6, RDW 16.3, Plt Count 339, MPV 9.6, Neut % (Auto) 55.2, Lymph % (Auto) 32.3, [place] % (Auto) 10.0 H, Eos % (Auto) 1.6, Baso % (Auto) 0.7, Neut # (Auto) 3.4, Lymph # (Auto) 2.0, [place] # (Auto) 0.6, Eos # (Auto) 0.1, Baso # (Auto) 0.0, Sodium 135 L, Potassium 4.2, Chloride 98, Carbon Dioxide 29, Anion Gap 12.2, BUN 25 H, Creatinine 0.70, Estimated Creat Clear 43, Estimated GFR 82, Est GFR ( Amer) 99, Glucose 95, Calcium 9.8, Total Bilirubin 0.3, AST 32, ALT 21, Alkaline Phosphatase 67, Troponin I < 0.01, Total Protein 7.4, Albumin 4.7, Globulin 2.7, Albumin/Globulin Ratio 1.7, Lipase 172, HCV Ab NEO w/Rflx PCR Qn Negative, HIV Ag/Ab Combo Qual Negative 05/21/24 11:15: Troponin I < 0.01 05/21/24 08:01 05/21/24 08:01 Response Orders (Tests/Meds): ED MEDICATIONS Generic Name Dose Route Start Last Admin Trade Name Freq PRN Reason Stop Dose Admin Sodium Chloride 10 ml 05/21/24 08:45 05/21/24 08:45 Sodium Chloride 0.9% 10ml Syr (Rad Only) IV 06/20/24 08:44 10 ml NEEDED PRN Administration Maintain IV Site Discontinued Medications Generic Name Dose Route Start Last Admin Trade Name Freq PRN Reason Stop Dose Admin Sodium Chloride 1,000 mls @ 999 mls/hr 05/21/24 08:15 05/21/24 08:41 Sod Chlor 0.9% 1000ml Bag IV 05/21/24 09:15 999 mls/hr .Q1H1M LESLIE Administration Iopamidol 70 ml 05/21/24 08:45 05/21/24 08:45 Iopamidol-370 (76%);100ml Bottle IV 05/21/24 08:46 70 ml ONCE ONE Administration Ketorolac Tromethamine 15 mg 05/21/24 08:08 05/21/24 08:41 Ketorolac 30mg/Ml Vial IV 05/21/24 08:09 15 mg ONCE ONE Administration Sodium Chloride 50 ml 05/21/24 08:45 05/21/24 08:45 0.9 % Sodium Chloride 50 Ml Vial IV 05/21/24 08:46 50 ml ONCE ONE Administration ORDERS Category Date Time Status CT angio chest PE protocol Stat Cat Scan 05/21/24 08:08 Completed CBC w/Auto Diff [Complete Blood Count Auto Diff] Stat Lab 05/21/24 08:01 Completed CMP [Comprehensive Metabolic Panel] Stat Lab 05/21/24 08:01 Completed HIV Combo Stat Lab 05/21/24 08:01 Completed Hepatitis C Ab Qual. W/ RFX Stat Lab 05/21/24 08:01 Completed Lipase Stat Lab 05/21/24 08:01 Completed Trop I [Troponin I] Stat Lab 05/21/24 08:01 Completed Troponin I Q3H Lab 05/21/24 11:15 Completed Troponin I Q3H Lab 05/21/24 14:15 Ordered ECG Data Tracing #1: Attestation: I reviewed this ECG and interpreted as documented below: ECG Narrative: Ventricular rate of 69 normal sinus rhythm no acute ischemic changes noted normal axis no significant conduction abnormalities MDM Narrative Medical Decision Narrative: Very well-appearing 73-year-old presenting today with pleuritic chest pain. She does have a remote history of a DVT we will obtain a CT PE to rule out pulmonary embolism which is my main concern today. Her symptoms are not consistent with acute coronary syndrome but given her onset of symptoms and her presenting time we will get serial troponins and place her in ED observation until those results are back. EKG was obtained and was unremarkable. Low dose of Toradol will be given for musculoskeletal discomfort. It is possible this is idiopathic pleurisy but that will be diagnosis of exclusion. Reassessment 909 patient feeling somewhat better first troponin undetectably low CT scan performed which personally interpreted which does not demonstrate any proximal PE or significant parenchymal abnormality. Patient is in ED observation pending second troponin. The remainder of her blood work is unremarkable. Reassessment 1221 patient remains very stable radiology reads consistent with my interpretation. Serial troponins are negative working diagnosis is idiopathic pleurisy. NSAIDs encouraged patient discharged in stable condition.
[2024-05-21 08:15] LABS: Basophils % 0.7 % (0.1-2.0); Eosinophils # 0.1 K/mm3 (0.0-0.4); Eosinophils % 1.6 % (0.1-12.0); Hematocrit 37.1 % (37.0-47.0); Hemoglobin 12.1 g/dL (12.2-16.2); Lymphocytes % 32.3 % (10-50); Mean Corpuscular HGB Conc 32.6 g/dL (31.8-35.4); Mean Corpuscular Hemoglobin 29.9 pg (27.0-31.2); Mean Corpuscular Volume 91.6 fl (81-99); Mean Platelet Volume 9.6 fl (7.4-10.4); Monocytes # 0.6 K/mm3 (0.1-1.0); Neutrophils # 3.4 K/mm3 (1.8-7.8); Neutrophils % 55.2 % (37.0-80.0); Platelet Count 339 K/mm3 (142-424); Red Blood Count 4.05 M/mm3 (4.20-5.40); Red Cell Distribution Width 16.3 % (11.5-17.5); White Blood Count 6.1 K/mm3 (4.8-10.8)
[2024-05-21 08:20] LABS: Albumin Level 4.7 g/dl (3.5-5.0); Chloride 98 mmol/L (98-107)
[2024-05-21 08:21] LABS: Potassium 4.2 mmoL/L (3.5-5.1); Sodium 135 mmol/L (136-145)
[2024-05-21 08:23] LABS: Alanine Aminotransferase 21 U/L (12-78); Albumin/Globulin Ratio 1.7 (1.1-1.8); Alkaline Phosphatase 67 U/L (38-126); Anion Gap 12.2 mEq/L (5-15); Aspartate Amino Transferase 32 U/L (14-36); Bilirubin,Total 0.3 mg/dl (0.2-1.3); Blood Urea Nitrogen 25 mg/dl (7-17); Carbon Dioxide 29 mmol/L (22.0-30.0); Creatinine Clearance Estimated 43 mL/min (50-200); Estimated Glomerular Filt Rate 82 ml/min (>60); GFR (African American) 99 ML/MIN (>60); Globulin 2.7 g/dL (1.3-3.2); Glucose 95 mg/dl (74-100); Lipase 172 U/L (23-300); Total Protein,Serum 7.4 g/dl (6.3-8.2)
[2024-05-21 08:24] LABS: Calcium 9.8 mg/dl (8.4-10.2)
--- NOTE | 2024-05-21 08:30 | PC.NURSE ---
rounded on pt at this time, provided with warm blanket. no other needs voiced at this time. at bedside. call light within reach
--- NOTE | 2024-05-21 08:40 | PC.NURSE ---
pt to ct via stretcher
[2024-05-21] MEDS: 0.9 % SODIUM CHLORIDE 1000ML 1,000 ML 999 ML IV (08:41)
[2024-05-21] MEDS: KETOROLAC 30MG/ML VIAL 15 MG IV (08:41)
[2024-05-21] MEDS: 0.9 % SODIUM CHLORIDE 50 ML VIAL IV (08:45)
[2024-05-21] MEDS: SODIUM CHLORIDE 0.9% 10ML SYR (RAD ONLY) 10 ML IV (08:45)
[2024-05-21] MEDS: IOPAMIDOL-370 (76%);100ML BOTTLE 70 ML IV (08:45)
[2024-05-21 08:55] LABS: Troponin I < 0.01 ng/ml (0.00-0.034)
--- NOTE | 2024-05-21 10:34 | PC.NURSE ---
pt ambulatory to bathroom
[2024-05-21 10:38] LABS: HIV Combo NEGATIVE (Negative)
[2024-05-21 10:46] LABS: Hepatitis C Ab Qual. W/ RFX NEGATIVE (Negative)
[2024-05-21 12:13] LABS: Troponin I < 0.01 ng/ml (0.00-0.034)
== END 2024-05-21 12:23 | disposition home or self-care (01) ==
PROVIDERS: Emergency Provider Student in an Organized Health Care Education/Training Program; PCP Family Medicine
DX: R07.81 Pleurodynia (principal); R07.9 Chest pain, unspecified
CPT/HCPCS: 71275; 80053; 83690; 84484; 85025; 86803; 87389; 93005; 96361; 96374; 99285; J1885; J7030; Q9967

== ENCOUNTER 2024-09-15 08:58 | Day surgery (SDC) | payer MEDICARE, SELFPAY ==
[2024-09-14 10:59] VITALS: BMI 22.8
[2024-09-15 09:11] VITALS: BP 137/82; PULSE 78; RESP 16; TEMP 36.2; O2SAT 97
[2024-09-15] MEDS: LACTATED RINGERS 1000ML 1,000 ML 50 ML IV (09:22)
--- NOTE | 2024-09-15 09:54 | EXP.HP ---
History of Present Illness *Admission Date: 09/15/24 *Reason for visit:: Screening for colon cancer *History of present illness: Mrs. Hines is a 73-year-old female who is here for screening colonoscopy. Her last colonoscopy was September 2014 and was normal. The examination is deemed medically necessary for screening colonoscopy. The patient has been seen, interviewed and examined prior to the procedure by both myself and the anesthesia provider. [facility] Disclaimer: The information contained in this section may have been updated after the patient was seen, as this information can be updated by other users. Medical History PETE (obstructive sleep apnea) High blood pressure Kidney stones GERD (gastroesophageal reflux disease) Arthritis Osteoporosis Dizziness Resolved since PCP discontinue triamterene/hydrochlorothiazide. Remains asymptomatic Surgical History History of carpal tunnel surgery History of left hip replacement Family History Other COPD (chronic obstructive pulmonary disease) Social History Smoking Status: Former smoker alcohol intake: current alcohol intake frequency: a few times a week current occupational status: employed Travel in the last 8 weeks?: None household members: spouse Have you lived/traveled outside US in past 30 days?: No Contact w/someone who lives/traveled outside US past 30 days?: No Exposure to someone with infectious disease in past 14 days?: No Do you have a fever (greater than 100.4 F or 38 C)?: No Have you tested positive for COVID-19?: No Exposed to someone with COVID-19 in past 14 days?: No Do you have a sore throat?: No Do you have a cough?: No Do you have any weakness?: No Do you have any diarrhea?: No Are you experiencing any unusual bleeding?: No Do you have any muscle aches/pain?: No Do you have any abdominal pain?: No Are you experiencing loss of taste or smell?: No Other Medical History Have you received the Pneumonia Vaccine: Yes Review of Systems Review of Systems Review of systems (narrative): Negative *Cardiovascular Comments: Negative *Gastrointestinal Comments: Negative *Genitourinary Comments: Negative *Musculoskeletal Comments: Negative *Neurologic Comments: Negative Meds Home Medications and Allergies Home Medications ?Medication ?Instructions ?Recorded ?Confirmed ?Type omeprazole 20 mg capsule,delayed 20 mg PO DAILY GERD 10/19/20 09/14/24 History release calcium 600 mg (as carbonate)-vit 1 each PO DAILY Supplement 04/22/21 09/14/24 History D3 20 mcg (800 unit) chewable tablet cholecalciferol (vitamin D3) 25 2,000 unit PO DAILY Supplement 04/22/21 09/14/24 History mcg (1,000 unit) capsule vitamin E (dl, acetate) 180 mg 400 unit PO DAILY Supplement 10/21/21 09/14/24 History (400 unit) capsule ascorbic acid (vitamin C) 1,000 mg 1 g PO DAILY Supplement 04/28/22 09/14/24 History tablet (Vitamin C) cetirizine 10 mg capsule (All Day 10 mg PO DAILY PRN allergies 08/18/22 09/14/24 History Allergy (cetirizine)) denosumab 60 mg/mL subcutaneous 60 mg SQ [id number] 08/18/22 09/14/24 History syringe (Prolia) estradiol 10 mcg vaginal tablet 10 mcg vaginal DIRECTED HORMONE 08/18/22 09/14/24 History REPLACEMENT fluticasone propionate 50 1 spray intranasal DAILY PRN 08/18/22 09/14/24 History mcg/actuation nasal allergies spray,suspension montelukast 10 mg tablet 10 mg PO PM ALLERGIES 08/18/22 09/14/24 History valacyclovir 1 gram tablet 2,000 mg PO Q12HP PRN preventative 08/18/22 09/14/24 History cyanocobalamin (vitamin B-12) 1,000 mcg PO DAILY 01/28/23 09/14/24 History 1,000 mcg capsule lactobacillus combination no.9 4 4,000 mmu cells PO DAILY 01/28/23 09/14/24 History billion cell capsule (Adult 50 Plus Probiotic) calcium 500 mg-vitamin D3 100 1 tab PO HS 06/15/24 09/14/24 History unit-vitamin K 40 mcg chewable tablet methylcellulose (laxative) 500 mg 500 mg PO DAILY 06/15/24 09/14/24 History tablet (Citrucel) oxygen-air delivery systems 06/15/24 09/14/24 History polyethylene glycol 3350 17 17 g PO DAILY 06/15/24 09/14/24 History gram/dose oral powder (Miralax) New Prescriptions to Start Prescriptions: Allergies Allergy/AdvReac Type Severity Reaction Status Date / Time No Known Allergies Allergy Verified 09/14/24 10:57 Exam Data for Last 24 hours Vital signs and Labs for Last 24 Hours: Temp Pulse Resp BP Pulse Ox O2 Del Method 97.1 F L 78 16 137/82 97 Room Air 09/15/24 09:11 09/15/24 09:11 09/15/24 09:11 09/15/24 09:11 09/15/24 09:11 09/15/24 09:11 I & O for Last 24 hours: Intake & Output 09/12/24 09/13/24 09/14/24 09/15/24 23:59 23:59 23:59 23:59 Weight 125 lb *Routine HEENT Exam Head: Present normocephalic Eye: Present EOMI and PERRL ENT: Present mucous membranes moist *Routine Neck Exam Neck: Present supple *Routine Respiratory Exam Respiratory: Present CTA bilaterally *Routine Cardiovascular Exam Cardiovascular: Present RRR *Routine Abdominal Exam Abdominal: Present soft and normoactive bowel sounds; Absent tenderness *Routine Rectal Exam Rectal:: deferred *Routine Genitalia Exam Genitalia:: deferred *Routine Extremities Exam Extremities: Absent cyanosis, clubbing or edema *Routine Skin Exam Skin: Present warm; Absent rash *Routine Neurological Exam Neurological: Present alert and oriented X3 Assessment and Plan *Assessment and plan (1) Screening for malignant neoplasm of colon: Status: Acute Category: Medical Code(s): Z12.11 - Encounter for screening for malignant neoplasm of colon Plan A/P: 1. Screening for colon cancer is the preprocedural diagnosis. The patient will be anesthetized/sedated using MAC sedation. The patient has been seen and examined. Cardiac and lung assessment prior to the examination is stable. Proceed with planned screening colonoscopy.
--- NOTE | 2024-09-15 10:01 | HMH.PROCNOTE ---
[facility] Procedure Note Date: 09/15/24 Time: 10:20 Procedure Note:: Colonoscopy Procedure Report: Colonoscopy Endoscopist: Jovanny Romano II, MD Referring physician: Conner Wall MD Date of Procedure: September 15, 2024 Equipment: Olympus 190 variable stiffness pediatric colonoscope Sedation: MAC sedation Indication: Mrs. Hines is a 73-year-old female who is here for follow-up screening/surveillance colonoscopy. Her last colonoscopy was September 2014 and was normal. The patient had formally had IBS constipation but now struggles with some urgency, diarrhea and bloating since a COVID infection a couple of years ago. The patient also has sucrase isomaltase deficiency and prior history of Barney's esophagus. The patient does state that her bowel movements are improved with combined MiraLAX plus Citrucel daily. She reports no rectal bleeding, weight loss or family history of colon cancer. Procedure: Prior to the procedure, a history and physical exam was performed, and patient's medications and allergies were reviewed. The risks, benefits and alternatives of the sedation and procedure were discussed with the patient. All questions were answered and informed consent was obtained. The patient was brought to the procedure room. Patient identification and proposed procedure were verified by the physician and the nurse. The patient was placed in a left lateral decubitus position and the scope was passed under direct vision. Throughout the procedure, the patient's blood pressure, pulse, and oxygen saturations were monitored continuously. The colonoscopy was accomplished without difficulty. The patient tolerated the procedure well. Findings: On digital rectal examination there was normal rectal tone. There were no external hemorrhoids. The colonoscope was introduced through the anal canal to the rectum and advanced to the cecum. The ileocecal valve and appendiceal orifice were identified. The scope was advanced a short distance into the ileum which appeared grossly normal. The scope was then withdrawn into the colon. The cecum, ascending and transverse colon and mucosa were grossly normal. There were scattered diverticuli throughout the descending and sigmoid colon (LEFT colon). The rectum itself was normal. Upon retroflexion within the rectum there were grade 1-2 internal hemorrhoids. The preparation was excellent throughout with Ailey Preparation Score of 9. The cecal time was 10 minutes. Impression: 1. Left-sided diverticulosis 2. Grade 1-2 internal hemorrhoids Plan: The patient will not require any further preventive/surveillance colonoscopy. I would encourage continuation of the MiraLAX plus Citrucel on a maintenance basis. She will be due for repeat surveillance EGD for Barney's in January 2027.
[2024-09-15 10:23] VITALS: BP 82/50; PULSE 72; RESP 16; TEMP 36.1; O2SAT 97
[2024-09-15 10:33] VITALS: BP 94/58; PULSE 72; RESP 16; O2SAT 98
[2024-09-15 10:43] VITALS: BP 110/61; PULSE 65; RESP 18; O2SAT 97
[2024-09-15 10:53] VITALS: BP 109/73; PULSE 62; RESP 18; O2SAT 100
--- NOTE | 2024-09-15 13:01 | EXP.ANES.CKL ---
[facility] Disclaimer: The information contained in this section may have been updated after the patient was seen, as this information can be updated by other users. Medical History PETE (obstructive sleep apnea) High blood pressure Kidney stones GERD (gastroesophageal reflux disease) Arthritis Osteoporosis Dizziness Resolved since PCP discontinue triamterene/hydrochlorothiazide. Remains asymptomatic Surgical History History of carpal tunnel surgery History of left hip replacement Family History Other COPD (chronic obstructive pulmonary disease) Social History Smoking Status: Former smoker alcohol intake: current alcohol intake frequency: a few times a week substance use type: denies use current occupational status: employed Travel in the last 8 weeks?: None household members: spouse [facility] Anesthesia Checklist Patient Identification Patient Identification: Arm Band Structural Data Admitted From: Home Planned Operative Procedure/s: Colonoscopy Consent for Planned Operative Procedure(s) Verified: Yes Verified Documents: Surgical Consent and History and Physical NPO Status Verified Time NPO: 00:00 Additional verifications Anesthesia Reactions: No Airway Assessment Mallampati Score:: Class II C-Spine Mobility Assessed: Yes TMJ Mobility Assessed: Yes Dentition: Good Dentition Neurological Assessment Level of Consciousness: Awake, Alert and Appropriate Anesthesia Plan Anesthesia Risk discussed: Yes Anesthesia Plan: Verified ASA Class: II Anesthesia Type: MAC
== END 2024-09-15 11:07 | disposition home or self-care (01) ==
PROVIDERS: PCP Family Medicine; Visit Provider Internal Medicine Gastroenterology
PROC: 0DJD8ZZ Inspection of Lower Intestinal Tract, Via Natural or Artificial Opening Endoscopic (ICD-10-PCS; CPT 45378; principal; 2024-09-15 10:30)
DX: Z12.11 Encounter for screening for malignant neoplasm of colon (principal); K58.0 Irritable bowel syndrome with diarrhea; Z86.16 Personal history of COVID-19; E74.31 Sucrase-isomaltase deficiency; K57.30 Diverticulosis of large intestine without perforation or abscess without bleeding; K64.1 Second degree hemorrhoids; Z87.891 Personal history of nicotine dependence; Z79.899 Other long term (current) drug therapy
CPT/HCPCS: 45378; J2003; J2704; J7120